=== PATIENT | male | born 1965 | race Caucasian/White ===

== ENCOUNTER 2016-11-15 18:26 | Emergency (ER) | payer MEDICARE ==
[2016-11-15 20:41] LABS: HEMOGLOBIN 13.2 gm/dl (14.0-17.5); RED BLOOD COUNT 4.44 M/UL (4.20-5.50)
[2016-11-15 20:59] LABS: BUN/CREATININE RATIO 17 (0-10)
== END 2016-11-16 00:35 | disposition home or self-care (01) ==
LOC: ER1 18:26
PROVIDERS: Physician Assistant
DX: E11.65 Type 2 diabetes mellitus with hyperglycemia (principal); R06.00 Dyspnea, unspecified; J44.9 Chronic obstructive pulmonary disease, unspecified; I10 Essential (primary) hypertension; I48.91 Unspecified atrial fibrillation; F17.210 Nicotine dependence, cigarettes, uncomplicated; Z88.1 Allergy status to other antibiotic agents; Z99.81 Dependence on supplemental oxygen; Z79.4 Long term (current) use of insulin; Z79.899 Other long term (current) drug therapy
CPT/HCPCS: 36415; 36600; 71010; 80053; 81001; 82009; 82550; 82553; 82803; 82962; 83605; 83690; 83874; 84484; 85025; 93005; 96361; 96374; 99285; J2405

== ENCOUNTER 2016-12-02 15:54 | Observation (INO) | payer MEDICARE ==
[~2016-12-02] VITALS: Ht 180.3 cm; Wt 115.9 kg
[2016-12-02 16:34] LABS: RED BLOOD COUNT 5.28 M/UL (4.20-5.50); WHITE BLOOD COUNT 13.5 K/UL (4.5-11.0)
[2016-12-02 16:53] LABS: BUN/CREATININE RATIO 13 (0-10)
[2016-12-03] MEDS ORDERED: NEURONTIN 400400 MG PO (22:22)
[2016-12-03] MEDS ORDERED: CAPOZIDE 25/15 T1 EA PO (22:22)
[2016-12-03] MEDS ORDERED: LISINOPRIL-HCT1 EAC2 PO (22:23)
[2016-12-03] MEDS ORDERED: PRAVACHOL40 MG PO (22:23)
[2016-12-03] MEDS ORDERED: ADVAIR 500-501 EACH INH ×2 (22:24→22:40)
[2016-12-03] MEDS ORDERED: SUBOXONE 8 MG-1 EACH SL (22:24)
[2016-12-03] MEDS ORDERED: SYMMETREL 100100 MG PO (22:25)
[2016-12-03] MEDS ORDERED: BUSPAR 10MG10 MG PO (22:26)
[2016-12-03] MEDS ORDERED: JANUMET XR 50-1 EACH PO (22:26)
[2016-12-03] MEDS ORDERED: HYDROXYZINE HCL25 MG PO (22:29)
[2016-12-03] MEDS ORDERED: MELATONIN5 MG PO (22:30)
[2016-12-03] MEDS ORDERED: TOUJEO (22:32)
[2016-12-03] MEDS ORDERED: RISPERIDONE0.5 MG PO (22:33)
[2016-12-03] MEDS ORDERED: TESSALON PERLE100 MG PO (22:33)
[2016-12-03] MEDS ORDERED: TOUJEO SQ (22:41)
[2016-12-03] MEDS ORDERED: VENTOLIN/PROVE0.5 ML INH (22:42)
[2016-12-04 04:48] LABS: BUN/CREATININE RATIO 20 (0-10)
[2016-12-04] MEDS ORDERED: ASPIR 8181 MG PO (20:17)
[2016-12-04] MEDS ORDERED: METOPROLOL TART25 MG PO (20:18)
== END 2016-12-04 20:35 | disposition home or self-care (01) ==
LOC: ER1 15:54 → ZEROF 21:19 → M/S 21:19 → ZEROF 21:19 → M/S 12-03 21:25
PROVIDERS: Emergency Medicine; Internal Medicine; ADMIT Internal Medicine
DX: R07.9 Chest pain, unspecified (principal); E11.65 Type 2 diabetes mellitus with hyperglycemia; I10 Essential (primary) hypertension; J44.1 Chronic obstructive pulmonary disease with (acute) exacerbation; E78.5 Hyperlipidemia, unspecified; F17.210 Nicotine dependence, cigarettes, uncomplicated; Z88.1 Allergy status to other antibiotic agents; Z98.890 Other specified postprocedural states; E87.1 Hypo-osmolality and hyponatremia; R79.89 Other specified abnormal findings of blood chemistry; M51.36 Other intervertebral disc degeneration, lumbar region; Z99.81 Dependence on supplemental oxygen; Z82.49 Family history of ischemic heart disease and other diseases of the circulatory system; Z79.4 Long term (current) use of insulin; Z79.899 Other long term (current) drug therapy
CPT/HCPCS: ECHO; 36415; 71010; 71250; 78452; 80053; 80061; 82550; 82553; 82962; 83036; 83690; 83874; 83880; 84443; 84484; 85025; 85379; 93005; 93017; 93306; 94664; 96360; 96361; 96372; 99285; A9502; G0378; J1650; J1815; J1817; J2270; J2785

== ENCOUNTER 2017-01-18 15:41 | Emergency (ER) | payer MEDICARE ==
[~2017-01-18 15:41] MED LIST: ADVAIR 500-501 EACH INH; ASPIR 8181 MG PO; BUSPAR 10MG10 MG PO; CAPOZIDE 25/15 T1 EA PO; HYDROXYZINE HCL25 MG PO; JANUMET XR 50-1 EACH PO; LISINOPRIL-HCT1 EAC2 PO; MELATONIN5 MG PO; METOPROLOL TART25 MG PO; NEURONTIN 400400 MG PO; PRAVACHOL40 MG PO; RISPERIDONE0.5 MG PO; SUBOXONE 8 MG-1 EACH SL; SYMMETREL 100100 MG PO; TESSALON PERLE100 MG PO; TOUJEO; TOUJEO SQ; VENTOLIN/PROVE0.5 ML INH
== END 2017-01-18 16:50 | disposition home or self-care (01) ==
LOC: ER1 15:41
DX: K05.219 Aggressive periodontitis, localized, unspecified severity (principal); K02.9 Dental caries, unspecified; I10 Essential (primary) hypertension; E10.9 Type 1 diabetes mellitus without complications; F17.210 Nicotine dependence, cigarettes, uncomplicated; Z88.1 Allergy status to other antibiotic agents; Z79.899 Other long term (current) drug therapy
CPT/HCPCS: 96372; 99282; J1885

== ENCOUNTER 2020-10-13 17:07 | Emergency (ER) | payer OTHER ==
[~2020-10-13 17:07] MED LIST changes: +AMOX TR-K CLV1 EAC4 PO; +ANTIVERT 12.512.5 MG PO; +ATORVASTATIN CA20 MG PO; +AUGMENTIN 875-1 EACH PO; +BACLOFEN20 MG PO; +BUDESONIDE-FO10.2 G1 INH; +BUSPAR 5MG TABLE5 MG PO; +CLOPIDOGREL75 MG PO; +COMBIVENT0.074 GM/I INH; +CYCLOBENZAPRINE10 MG PO; +DULERA 100 MCG8.8 GM INH; +FLOMAX 0.4 MG0.4 MG PO; +IBUPROFEN600 MG PO; +IPRAT-ALBUT 0.5-3 ML NEB; +JANUMET 50-1,01 EACH PO; +LINZESS145 MCG PO; +LISINOPRIL10 MG PO; +LOPRESSOR 25 MG25 MG PO; +MOBIC15 MG PO; +NEURONTIN 300300 MG PO; -NEURONTIN 400400 MG PO; +NITROGLYCERIN0.4 MG SL; +NOVOLOG MI100 UNIT/1 SC; +NOVOLOG100 UNIT/1 SQ; +OMEPRAZOLE20 MG PO; +POTASSIUM CHLO10 ME1 PO; +PREDNISONE20 MG PO; +SPIRIVA RESPIMAT4 GM INH; +TORADOL 10 MG T10 MG PO; +VIBRAMYCIN100 MG PO; +ZESTORETIC 20-1 EAC1 PO
[2020-10-13] MEDS ORDERED: ENDOCET 5-3251 EACH PO (20:52)
[2020-10-13] MEDS ORDERED: DOXYCYCLINE HY100 MG PO (21:06)
[2020-10-13] MEDS ORDERED: AMOXICILLIN500 M1 PO (21:06)
== END 2020-10-13 22:08 | disposition home or self-care (01) ==
LOC: ER1 17:07
DX: S32.131A Minimally displaced Zone III fracture of sacrum, initial encounter for closed fracture (principal); J44.9 Chronic obstructive pulmonary disease, unspecified; I10 Essential (primary) hypertension; E11.9 Type 2 diabetes mellitus without complications; J18.9 Pneumonia, unspecified organism; Z20.822 Contact with and (suspected) exposure to COVID-19; W19.XXXA Unspecified fall, initial encounter
CPT/HCPCS: 0240U; 71046; 72131; 72192; 99284

== ENCOUNTER 2021-01-23 14:19 | Emergency (ER) | payer OTHER ==
[~2021-01-23 14:19] MED LIST changes: +AMOXICILLIN500 M1 PO; +DOXYCYCLINE HY100 MG PO; +ENDOCET 5-3251 EACH PO
[2021-01-23 18:29] LABS: HEMOGLOBIN 13.8 gm/dl (14.0-17.5); RED BLOOD COUNT 5.01 M/UL (4.20-5.50); WHITE BLOOD COUNT 12.6 K/UL (4.5-11.0)
[2021-01-23 19:15] LABS: BUN/CREATININE RATIO 16 (0-10)
[2021-01-23] MEDS ORDERED: CYCLOBENZAPRINE5 MG PO (19:43)
[2021-01-23] MEDS ORDERED: IBUPROFEN600 MG PO (19:43)
== END 2021-01-23 20:10 | disposition home or self-care (01) ==
LOC: ER1 14:19
PROVIDERS: Physician Assistant Medical
DX: S16.1XXA Strain of muscle, fascia and tendon at neck level, initial encounter (principal); S00.81XA Abrasion of other part of head, initial encounter; E11.9 Type 2 diabetes mellitus without complications; I10 Essential (primary) hypertension; Z87.891 Personal history of nicotine dependence; Z23 Encounter for immunization; W19.XXXA Unspecified fall, initial encounter; Y92.009 Unspecified place in unspecified non-institutional (private) residence as the place of occurrence of the external cause
CPT/HCPCS: 70450; 70486; 72125; 73030; 80053; 82962; 85025; 90471; 90715; 96372; 99284; J1885

== ENCOUNTER 2021-01-29 13:58 | Inpatient (IN) | payer OTHER ==
[~2021-01-29] VITALS: Ht 180.3 cm; Wt 104.8 kg
[~2021-01-29 13:58] MED LIST changes: +CYCLOBENZAPRINE5 MG PO
[2021-01-29 15:16] LABS: HEMOGLOBIN 12.2 gm/dl (14.0-17.5); RED BLOOD COUNT 4.13 M/UL (4.20-5.50); WHITE BLOOD COUNT 10.8 K/UL (4.5-11.0)
[2021-01-29 15:39] LABS: BUN/CREATININE RATIO 11 (0-10)
[2021-01-29] MEDS ORDERED: KETOROLAC TROME10 MG PO (18:19)
[2021-01-29] MEDS ORDERED: LANTUS SOL100 UNIT/1 SQ (18:20)
[2021-01-29] MEDS ORDERED: SILVADENE CREAM20 GM TOP (18:22)
[2021-01-29] MEDS ORDERED: GABAPENTIN600 MG PO (18:29)
[2021-01-30 04:04] LABS: HEMOGLOBIN 12.7 gm/dl (14.0-17.5); RED BLOOD COUNT 4.34 M/UL (4.20-5.50); WHITE BLOOD COUNT 10.1 K/UL (4.5-11.0)
[2021-01-30 04:25] LABS: BUN/CREATININE RATIO 19 (0-10)
[2021-02-01 03:50] LABS: HEMOGLOBIN 13.2 gm/dl (14.0-17.5); RED BLOOD COUNT 4.5 M/UL (4.20-5.50); WHITE BLOOD COUNT 9.1 K/UL (4.5-11.0)
[2021-02-01 04:49] LABS: BUN/CREATININE RATIO 24 (0-10)
[2021-02-02 04:34] LABS: HEMOGLOBIN 13.4 gm/dl (14.0-17.5); RED BLOOD COUNT 4.56 M/UL (4.20-5.50); WHITE BLOOD COUNT 9.2 K/UL (4.5-11.0)
[2021-02-02 05:04] LABS: BUN/CREATININE RATIO 30 (0-10)
[2021-02-02] MEDS ORDERED: LANTUS INS100 UTS/M1 SQ (11:36)
[2021-02-02] MEDS ORDERED: IPRAT-ALBUT 0.5-3 ML NEB (11:36)
[2021-02-02] MEDS ORDERED: LEVOFLOXACIN500 MG PO (11:49)
--- NOTE | 2021-02-02 13:06 | NUR ---
PT WAS STANDING OUT IN DAY READY TO LEAVE BECAUSE TRANSPORT CAME TO GET HIM BUT ACTUALLY WAS AT THE WRONG ROOM, PULMONARY SAID HE WAS OK TO DC HOME AT HIS STAND POINT BUT PT TOOK THAT HE WAS READY TO GO, BUT I HAD ALREADY TO HIM EARLIER THAT HE HAD TO WAIT ON DR CRAFT TO COME DISCHARGE HIM , AND I WOULD LET HIM KNOW WHEN THAT WOULD BE SO HE COULD CALL HIS RIDE, , SO I TOLD THE PATIENT TO GO BACK TO HIS ROOM AND I WOULD BRING HIS STUYFF WHEN IT WAS READY CAUSE [facility] WAS UP HERE AND ALREADY SEEN HIM , THE PT SAID THAT THEY HAD ALREADY COME TO GET HIM AND HE WAS LEAVING SO I TOLD THE PT TO GO THEN IF HE DIDNT WANT TO WAIT I HAD BRENT EXPLAINED TO ND 2 TIMES HOW IT WAS GOING TO GO AND I WOULD LET HIM KNOW AND HE SAID OK , I WASNT GONA TO ARGUE WITH THE PT AND I TOLD HIM TO GO THEM HE WAS ALREADY GRUMPY AND TIRED OF WAITING , [facility] HAD SECURITY TO SEE IF THEY COULD FIND HIM AND TRY TO GET HIM TO CAME BACK, BUT HE DIDNT RETURN, SO I CALLED HIS CELL/ HOME NUMBER WAS DISCONNECTED THAT WAS ON HIS FACESHEET, AND HIS AUNTS AND LEFT MESSAGE FOR HIM TO CALL ME SO HE COULD GET HIS DC SCRIPTS AND HIS DC PACKET, HE DIDNT ANSWER HIS CELL LEFT MESSAGE ON AUNTS PHONE FOR HIM TO CALL ME AT HOSPITAL
== END 2021-02-02 12:59 | disposition home or self-care (01) | DRG 193 ==
LOC: ER1 13:58 → MED SURG 4 16:30 → CDU 16:30 → MED SURG 4 17:37
PROVIDERS: Family Medicine; Physician Assistant Medical; ADMIT Internal Medicine
DX: J18.9 Pneumonia, unspecified organism (principal); J96.01 Acute respiratory failure with hypoxia; J44.0 Chronic obstructive pulmonary disease with (acute) lower respiratory infection; F11.20 Opioid dependence, uncomplicated; Z20.822 Contact with and (suspected) exposure to COVID-19; F19.11 Other psychoactive substance abuse, in remission; I25.10 Atherosclerotic heart disease of native coronary artery without angina pectoris; N40.0 Benign prostatic hyperplasia without lower urinary tract symptoms; F41.9 Anxiety disorder, unspecified; F32.9 Major depressive disorder, single episode, unspecified; E78.5 Hyperlipidemia, unspecified; G47.33 Obstructive sleep apnea (adult) (pediatric); E11.40 Type 2 diabetes mellitus with diabetic neuropathy, unspecified; E11.65 Type 2 diabetes mellitus with hyperglycemia; I45.10 Unspecified right bundle-branch block; G89.29 Other chronic pain; M54.9 Dorsalgia, unspecified; E66.9 Obesity, unspecified; I10 Essential (primary) hypertension; K21.9 Gastro-esophageal reflux disease without esophagitis; J64 Unspecified pneumoconiosis; Z88.1 Allergy status to other antibiotic agents; Z99.81 Dependence on supplemental oxygen; Z95.5 Presence of coronary angioplasty implant and graft; Z85.118 Personal history of other malignant neoplasm of bronchus and lung; Z90.2 Acquired absence of lung [part of]; Z87.891 Personal history of nicotine dependence; Z68.32 Body mass index [BMI] 32.0-32.9, adult; Z82.49 Family history of ischemic heart disease and other diseases of the circulatory system; Z79.4 Long term (current) use of insulin; Z79.899 Other long term (current) drug therapy
CPT/HCPCS: 36415; 36600; 71045; 71270; 80048; 80053; 82550; 82553; 82803; 82962; 83605; 83735; 83874; 83880; 84484; 85025; 85027; 87040; 87070; 87205; 94640; 94664; 94760; 96374; 99285; J1956; J7050; Q9967; U0002

== ENCOUNTER 2021-02-28 19:21 | Emergency (ER) | payer OTHER ==
[~2021-02-28 19:21] MED LIST changes: +GABAPENTIN600 MG PO; +KETOROLAC TROME10 MG PO; +LANTUS INS100 UTS/M1 SQ; +LANTUS SOL100 UNIT/1 SQ; +LEVOFLOXACIN500 MG PO; +SILVADENE CREAM20 GM TOP
== END 2021-02-28 20:55 | disposition home or self-care (01) ==
LOC: ER1 19:21
DX: I26.99 Other pulmonary embolism without acute cor pulmonale (principal); E11.9 Type 2 diabetes mellitus without complications; Z95.5 Presence of coronary angioplasty implant and graft; Z79.4 Long term (current) use of insulin
CPT/HCPCS: 93005; 99284

== ENCOUNTER 2021-06-06 13:37 | Emergency (ER) | payer OTHER ==
[2021-06-06 15:53] LABS: HEMOGLOBIN 16.6 gm/dl (14.0-17.5); RED BLOOD COUNT 5.53 M/UL (4.20-5.50); WHITE BLOOD COUNT 7.2 K/UL (4.5-11.0)
[2021-06-06 16:19] LABS: BUN/CREATININE RATIO 12 (0-10)
[2021-06-06] MEDS ORDERED: IBUPROFEN600 MG PO (17:37)
== END 2021-06-06 17:52 | disposition home or self-care (01) ==
LOC: ER1 13:37
PROVIDERS: Nurse Practitioner
DX: N28.1 Cyst of kidney, acquired (principal); E11.9 Type 2 diabetes mellitus without complications; I10 Essential (primary) hypertension; E78.5 Hyperlipidemia, unspecified; J44.9 Chronic obstructive pulmonary disease, unspecified; Z88.1 Allergy status to other antibiotic agents; Z85.118 Personal history of other malignant neoplasm of bronchus and lung
CPT/HCPCS: 80053; 81001; 85025; 96374; 99284; J1885; J7030

== ENCOUNTER 2021-09-01 10:21 | Emergency (ER) | payer OTHER ==
[2021-09-01 11:40] LABS: HEMOGLOBIN 14.5 gm/dl (14.0-17.5); RED BLOOD COUNT 4.95 M/UL (4.20-5.50); WHITE BLOOD COUNT 14.1 K/UL (4.5-11.0)
[2021-09-01 12:00] LABS: BUN/CREATININE RATIO 24 (0-10)
[2021-09-01] MEDS ORDERED: DOXYCYCLINE HY100 MG PO (14:26)
[2021-09-01] MEDS ORDERED: AUGMENTIN 875-1 EACH PO (14:26)
[2021-09-01] MEDS ORDERED: [UNRECOGNIZED DRUG - OTHER] MC (14:39)
[2021-09-01] MEDS ORDERED: GLUCOSE TEST S1 EACH MC (14:39)
[2021-09-01] MEDS ORDERED: VENTOLIN/PROVE0.5 ML INH (14:39)
[2021-09-01] MEDS ORDERED: GLUCOCOM1 EACH MC (14:39)
[2021-09-01] MEDS ORDERED: PREDNISONE 50 M50 MG PO (14:40)
== END 2021-09-01 14:50 | disposition home or self-care (01) ==
LOC: ER1 10:21
PROVIDERS: Nurse Practitioner
DX: J18.9 Pneumonia, unspecified organism (principal); R09.02 Hypoxemia; Z20.822 Contact with and (suspected) exposure to COVID-19; Z79.01 Long term (current) use of anticoagulants; Z88.5 Allergy status to narcotic agent; Z95.4 Presence of other heart-valve replacement; I25.10 Atherosclerotic heart disease of native coronary artery without angina pectoris; E78.5 Hyperlipidemia, unspecified; I10 Essential (primary) hypertension; E11.9 Type 2 diabetes mellitus without complications
CPT/HCPCS: 0240U; 36600; 71045; 80048; 82550; 82553; 82803; 83605; 83874; 84484; 85025; 86140; 93005; 94664; 94760; 99285; C9113; J2930

== ENCOUNTER → 2021-09-22 | Outpatient (CLI) | payer OTHER ==
[~2021-09-22] MED LIST changes: +GLUCOCOM1 EACH MC; +GLUCOSE TEST S1 EACH MC; +PREDNISONE 50 M50 MG PO; +[UNRECOGNIZED DRUG - OTHER] MC
== END | disposition home or self-care (01) ==
LOC: WCC 07:55
DX: E11.621 Type 2 diabetes mellitus with foot ulcer (principal); L97.523 Non-pressure chronic ulcer of other part of left foot with necrosis of muscle; L97.513 Non-pressure chronic ulcer of other part of right foot with necrosis of muscle; E11.42 Type 2 diabetes mellitus with diabetic polyneuropathy; I10 Essential (primary) hypertension; B18.2 Chronic viral hepatitis C; J44.9 Chronic obstructive pulmonary disease, unspecified; E66.01 Morbid (severe) obesity due to excess calories; F11.21 Opioid dependence, in remission; Z79.4 Long term (current) use of insulin; Z88.1 Allergy status to other antibiotic agents; Z68.32 Body mass index [BMI] 32.0-32.9, adult; Z82.49 Family history of ischemic heart disease and other diseases of the circulatory system

== ENCOUNTER → 2021-09-30 | Outpatient (CLI) | payer OTHER | LOC: WCC 07:34 | DX: E11.621 Type 2 diabetes mellitus with foot ulcer (principal); L97.525 Non-pressure chronic ulcer of other part of left foot with muscle involvement without evidence of necrosis; B18.2 Chronic viral hepatitis C; F11.21 Opioid dependence, in remission; E11.42 Type 2 diabetes mellitus with diabetic polyneuropathy; L84 Corns and callosities; E66.01 Morbid (severe) obesity due to excess calories; L97.513 Non-pressure chronic ulcer of other part of right foot with necrosis of muscle; E11.40 Type 2 diabetes mellitus with diabetic neuropathy, unspecified; I10 Essential (primary) hypertension; J44.9 Chronic obstructive pulmonary disease, unspecified; Z79.4 Long term (current) use of insulin; Z68.32 Body mass index [BMI] 32.0-32.9, adult ==

== ENCOUNTER 2021-10-14 00:32 | Emergency (ER) | payer OTHER ==
[2021-10-14 03:52] LABS: HEMOGLOBIN 14.7 gm/dl (14.0-17.5); RED BLOOD COUNT 5.03 M/UL (4.20-5.50); WHITE BLOOD COUNT 7.1 K/UL (4.5-11.0)
[2021-10-14 04:05] LABS: BUN/CREATININE RATIO 26 (0-10)
== END 2021-10-14 04:16 | disposition left against medical advice (07) ==
LOC: ER1 00:32
PROVIDERS: Physician Assistant
DX: E11.621 Type 2 diabetes mellitus with foot ulcer (principal); L97.529 Non-pressure chronic ulcer of other part of left foot with unspecified severity; L97.519 Non-pressure chronic ulcer of other part of right foot with unspecified severity; I51.9 Heart disease, unspecified; I25.10 Atherosclerotic heart disease of native coronary artery without angina pectoris; E11.9 Type 2 diabetes mellitus without complications; Z95.5 Presence of coronary angioplasty implant and graft; Z88.1 Allergy status to other antibiotic agents; Z85.118 Personal history of other malignant neoplasm of bronchus and lung
CPT/HCPCS: 73630; 80053; 83605; 85025; 85652; 86140; 87040; 99283

== ENCOUNTER → 2021-10-21 | Outpatient (CLI) | payer OTHER | END | disposition home or self-care (01) | LOC: WCC 07:19 | DX: E11.621 Type 2 diabetes mellitus with foot ulcer (principal); L97.525 Non-pressure chronic ulcer of other part of left foot with muscle involvement without evidence of necrosis; L97.515 Non-pressure chronic ulcer of other part of right foot with muscle involvement without evidence of necrosis; E11.42 Type 2 diabetes mellitus with diabetic polyneuropathy; E11.65 Type 2 diabetes mellitus with hyperglycemia; I10 Essential (primary) hypertension; J44.9 Chronic obstructive pulmonary disease, unspecified; L84 Corns and callosities; E66.01 Morbid (severe) obesity due to excess calories; B18.2 Chronic viral hepatitis C; F11.21 Opioid dependence, in remission; Z79.4 Long term (current) use of insulin; Z68.32 Body mass index [BMI] 32.0-32.9, adult ==

== ENCOUNTER 2021-11-09 16:40 | Emergency (ER) | payer OTHER ==
[2021-11-09 17:27] LABS: HEMOGLOBIN 14.7 gm/dl (14.0-17.5); RED BLOOD COUNT 4.92 M/UL (4.20-5.50); WHITE BLOOD COUNT 9.1 K/UL (4.5-11.0)
[2021-11-09 20:11] LABS: BUN/CREATININE RATIO 30 (0-10)
[2021-11-09] MEDS ORDERED: DRAMAMINE LESS25 MG PO (21:12)
== END 2021-11-09 21:38 | disposition home or self-care (01) ==
LOC: ER1 16:40
PROVIDERS: Nurse Practitioner
DX: R42 Dizziness and giddiness (principal); E11.9 Type 2 diabetes mellitus without complications; I11.0 Hypertensive heart disease with heart failure; I50.9 Heart failure, unspecified; Z20.822 Contact with and (suspected) exposure to COVID-19; F17.200 Nicotine dependence, unspecified, uncomplicated; E78.5 Hyperlipidemia, unspecified; E11.40 Type 2 diabetes mellitus with diabetic neuropathy, unspecified; Z88.1 Allergy status to other antibiotic agents; Z85.118 Personal history of other malignant neoplasm of bronchus and lung
CPT/HCPCS: 0240U; 36600; 70450; 71045; 80053; 80307; 81001; 82550; 82553; 82803; 83605; 83880; 84484; 85025; 85379; 86140; 87040; 93005; 99285

== ENCOUNTER → 2021-11-29 | Outpatient (CLI) | payer OTHER ==
[~2021-11-29] MED LIST changes: +DRAMAMINE LESS25 MG PO
== END ==
LOC: WCC 07:41
DX: E11.621 Type 2 diabetes mellitus with foot ulcer (principal); L97.525 Non-pressure chronic ulcer of other part of left foot with muscle involvement without evidence of necrosis; L97.515 Non-pressure chronic ulcer of other part of right foot with muscle involvement without evidence of necrosis; E11.42 Type 2 diabetes mellitus with diabetic polyneuropathy; B18.2 Chronic viral hepatitis C; F11.21 Opioid dependence, in remission; L84 Corns and callosities; E66.01 Morbid (severe) obesity due to excess calories; L97.513 Non-pressure chronic ulcer of other part of right foot with necrosis of muscle; L97.523 Non-pressure chronic ulcer of other part of left foot with necrosis of muscle; I10 Essential (primary) hypertension; J44.9 Chronic obstructive pulmonary disease, unspecified; Z88.1 Allergy status to other antibiotic agents; Z79.4 Long term (current) use of insulin; Z68.32 Body mass index [BMI] 32.0-32.9, adult

== ENCOUNTER → 2021-12-22 | Outpatient (CLI) | payer OTHER | LOC: WCC 07:58 | DX: E11.621 Type 2 diabetes mellitus with foot ulcer (principal); L97.525 Non-pressure chronic ulcer of other part of left foot with muscle involvement without evidence of necrosis; L97.515 Non-pressure chronic ulcer of other part of right foot with muscle involvement without evidence of necrosis; B18.2 Chronic viral hepatitis C; F11.21 Opioid dependence, in remission; E11.42 Type 2 diabetes mellitus with diabetic polyneuropathy; L84 Corns and callosities; E66.01 Morbid (severe) obesity due to excess calories; E11.40 Type 2 diabetes mellitus with diabetic neuropathy, unspecified; I10 Essential (primary) hypertension; J44.9 Chronic obstructive pulmonary disease, unspecified; Z88.1 Allergy status to other antibiotic agents; Z68.32 Body mass index [BMI] 32.0-32.9, adult; Z79.4 Long term (current) use of insulin | CPT/HCPCS: 87070; 87077; 87186; 87205 ==